=== PATIENT | male | born 1990 | race Hispanic/Latino ===

== ENCOUNTER → 2019-09-05 | Outpatient (CLI) | payer BC ==
--- NOTE | 2019-09-05 16:36 | Diagnostic Imaging Report ---
Right knee MRI without contrast. History: Knee pain. Meniscus tear. Decreased range of motion. Comparison: None. Technique: Multiplanar multi-sequence MRI of the knee without contrast. Findings: Medial compartment: Mild midsubstance degeneration and fraying of the medial meniscus. No meniscal tear, cartilage abnormality, or MCL tear. Lateral compartment: No meniscal tear or cartilage abnormality. The LCL complex is normal. Intercondylar notch: The ACL and PCL are intact. Patellofemoral compartment: No chondromalacia or patellar dislocation. Extensor mechanism: The quadriceps and patellar tendons are normal. Other findings: There is a joint effusion and synovitis. There is no acute fracture, subluxation or avascular necrosis. IMPRESSION: Mild midsubstance degeneration and fraying of the medial meniscus. No meniscal tear, collateral ligament tear or cruciate ligament tear. Signed by: Dr. Ba Teran M.D. on 09/05/2019 4:33 PM
== END ==
LOC: MRI 14:46
PROVIDERS: ATTEND Specialist
DX: S83.261A Peripheral tear of lateral meniscus, current injury, right knee, initial encounter (principal); S83.221A Peripheral tear of medial meniscus, current injury, right knee, initial encounter

== ENCOUNTER 2019-10-17 17:00 | Outpatient (RCR) | payer BC | END 2019-10-26 | LOC: PT 17:00 | PROVIDERS: ATTEND Specialist | DX: M25.561 Pain in right knee (principal); M62.81 Muscle weakness (generalized); R26.2 Difficulty in walking, not elsewhere classified ==